=== PATIENT | female | born 1985 | race Native Hawaiian/Other Pacific Islander ===

== ENCOUNTER 2019-06-20 05:59 | Emergency (ER) | payer OTHER ==
[~2019-06-20] VITALS: Ht 162.6 cm; Wt 84.8 kg
[2019-06-20 05:59] VITALS: TEMP 98.1
[2019-06-20 06:34] LABS: PLATELET COUNT 175 K/uL (152-353)
[2019-06-20 06:43] LABS: POTASSIUM 3.4 mmol/L (3.6-5.2)
[2019-06-20 11:30] VITALS: BP 129/80
== END 2019-06-20 13:00 | disposition other institution (70) ==
LOC: ED 06:03
PROVIDERS: Hospitalist
DX: F32.89 Other specified depressive episodes (principal); R45.851 Suicidal ideations; S60.812A Abrasion of left wrist, initial encounter; X78.9XXA Intentional self-harm by unspecified sharp object, initial encounter; F19.10 Other psychoactive substance abuse, uncomplicated; R00.1 Bradycardia, unspecified
CPT/HCPCS: 80053; 80307; 80320; 80329; 81000; 81025; 85027; 93005; 99285